=== PATIENT | male | born 1995 | race Caucasian/White ===

== ENCOUNTER 2022-12-28 10:42 | Emergency (ER) | payer MEDICARE ==
[2022-12-28 11:34] VITALS: RESP 18; TEMP 98
[2022-12-28] MEDS ORDERED: KETOROLAC 15 MG/ML 1 ML VIAL IM STA (11:52)
--- NOTE | 2022-12-28 11:53 | ED ---
Back Pain HPI - General Chief Complaint: Back Pain/Injury Stated Complaint: back injury Time Seen by Provider: 12/28/22 11:48 Source: patient, RN notes reviewed Limitations: no limitations - History of Present Illness Initial Comments: Patient is a 27-year-old male presented to ER with chief complaint of back pain. Patient states he was helping lift someone in a wheelchair up a flight of stairs. Patient states he heard a pop in his back while doing this and felt immediate pain. Patient admits to back surgery in his past. Patient is a patient at [facility] currently. Patient denies any radiating pain down his legs or numbness or tingling in his legs. Patient denies any recent fevers, IV drug use, bowel/bladder incontinence. Patient has no other complaints at this time. - Related Data Home Medications Medication Instructions Recorded Confirmed Acetaminophen Tab [Tylenol] 650 mg PO Q4H PRN 12/28/22 12/28/22 Calcium Phos/D3/Magnesium/Zinc 1 tab PO TID PRN 12/28/22 12/28/22 [Jksptpe-Izi-Epos-Vitamin D3] Chlorpheniramine Maleate 4 mg PO Q4H PRN 12/28/22 12/28/22 [Chlor-Trimeton] Hyoscyamine Sulfate [Levsin] 0.125 mg PO QID PRN 12/28/22 12/28/22 Ibuprofen [Motrin Ib] 600 mg PO Q6H PRN 12/28/22 12/28/22 Loperamide HCl [Imodium A-D] 4 mg PO QID PRN 12/28/22 12/28/22 Mag Hydrox/Aluminum Hyd/Simeth 30 ml PO Q4H PRN 12/28/22 12/28/22 [Mylanta Maximum Strength Liq] Multivitamins, Thera [Multivitamin 1 tab PO DAILY 12/28/22 12/28/22 (formulary)] Sulfamethox-Tmp 800-160Mg [Bactrim 1 tab PO Q12HR 12/28/22 12/28/22 DS 800-160 mg] Thiamine [Vitamin B-1] 100 mg PO DAILY 12/28/22 12/28/22 busPIRone HCl [Buspar] 10 mg PO TID 12/28/22 12/28/22 cloNIDine HCL [Catapres] 0.1 - 0.3 mg PO DIRECTED PRN 12/28/22 12/28/22 cloNIDine HCL [Catapres] 0.1 mg PO Q4H PRN 12/28/22 12/28/22 ondansetron HCL [Ondansetron HCl] 8 mg PO Q6H PRN 12/28/22 12/28/22 traZODone HCL [Desyrel] 50 - 150 mg PO HS 12/28/22 12/28/22 Previous Rx's Medication Instructions Recorded Cyclobenzaprine [Flexeril] 5 mg PO TID PRN #15 tablet 12/28/22 Ketorolac [Toradol] 10 mg PO Q6HR #15 tab 12/28/22 Allergies Allergy/AdvReac Type Severity Reaction Status Date / Time No Known Allergies Allergy Verified 12/28/22 13:21 Review of Systems ROS Statement: Those systems with pertinent positive or pertinent negative responses have been documented in the HPI. ROS Other: All systems not noted in ROS Statement are negative. Past Medical History Past Medical History: No Reported History History of Any Multi-Drug Resistant Organisms: None Reported Past Surgical History: Back Surgery Past Psychological History: No Psychological Hx Reported Smoking Status: Current every day smoker Past Alcohol Use History: Abuse, Daily Past Drug Use History: None Reported General Exam Limitations: no limitations General appearance: alert, anxious Back exam: Present: normal inspection, tenderness (Lumbar spine and pelvic girdle) Course Vital Signs 12/28/22 11:28 Temperature 98 F Pulse Rate 82 Respiratory 18 Rate Blood Pressure 133/91 O2 Sat by Pulse 100 Oximetry Medical Decision Making - Medical Decision Making Was pt. sent in by a medical professional or institution (, PA, TEACHING ARTIST, urgent care, hospital, or [facility]...) When possible be specific @ -[facility] Did you speak to anyone other than the patient for history (EMS, parent, family, police, friend...)? What history was obtained from this source @ -No Did you review nursing and triage notes (agree or disagree)? Why? @ -I reviewed and agree with nursing and triage notes Were old charts reviewed (outside hosp., previous admission, EMS record, old EKG, old radiological studies, urgent care reports/EKG's, [facility] records)? Report findings @ -No old charts were reviewed Differential Diagnosis (chest pain, altered mental status, abdominal pain women, abdominal pain men, vaginal bleeding, weakness, fever, dyspnea, syncope, headache, dizziness, GI bleed, back pain, seizure, CVA, palpatations, mental health, musculoskeletal)? @ -Differential Musculoskeletal: Muscular strain, contusion, ligament sprain, fracture, arthritis, septic arthritis, bursitis, cellulitis, muscle spasm, nerve compression, DVT, arterial occlusion, herpes zoster, electrolyte abnormality, tumor.... This is not meant to be in all inclusive list EKG interpreted by me (3pts min.). @ -None X-rays interpreted by me (1pt min.). @ -X-rays of lumbar spine showed no acute fractures or dislocations. There is mild disc degeneration noted. CT interpreted by me (1pt min.). @ -None done U/S interpreted by me (1pt. min.). @ -None done What testing was considered but not performed or refused? (CT, X-rays, U/S, labs)? Why? @ -None What meds were considered but not given or refused? Why? @ -None Did you discuss the management of the patient with other professionals (professionals i.e. , PA, TEACHING ARTIST, lab, RT, psych nurse, social work lecturer, research tech, teacher, parachute officer, shelter case manager)? Give summary @ -No Was smoking cessation discussed for >3mins.? @ -No Was critical care preformed (if so, how long)? @ -No Were there social determinants of health that impacted care today? How? (Homelessness, low income, unemployed, alcoholism, drug addiction, transportation, low edu. Level, literacy, decrease access to med. care, retirement, rehab)? @ -No Was there de-escalation of care discussed even if they declined (Discuss DNR or withdrawal of care, Hospice)? DNR status @ -No What co-morbidities impacted this encounter? (DM, HTN, Smoking, COPD, CAD, Cancer, CVA, ARF, Chemo, Hep., AIDS, mental health diagnosis, sleep apnea, morbid obesity)? @ -None Was patient admitted / discharged? Hospital course, mention meds given and route, prescriptions, significant lab abnormalities, going to OR and other pertinent info. @ -Discharged. Upon examination patient was tender to lumbar spine and pelvic girdle. Patient received IM Toradol for pain control in the ER. X-rays obtained of the lumbar spine showed no acute fractures or dislocations. There is mild disc degeneration noted. Patient will be discharged with a low dose muscle relaxer and ketorolac for symptoms. Patient encouraged to stretch. Return parameters were discussed Patient will be discharged back to [facility] in stable condition with follow-up with PCP. Patient expressed understanding and agreement with care plan. Undiagnosed new problem with uncertain prognosis? @ -No Drug Therapy requiring intensive monitoring for toxicity (Heparin, Nitro, Insulin, Cardizem)? @ -No Were any procedures done? @ -No Diagnosis/symptom? @ -Muscle spasm/strain Acute, or Chronic, or Acute on Chronic? @ -Acute Uncomplicated (without systemic symptoms) or Complicated (systemic symptoms)? @ -Uncomplicated Side effects of treatment? @ -No Exacerbation, Progression, or Severe Exacerbation? @ -No Poses a threat to life or bodily function? How? (Chest pain, [place], [place], pneumonia, PE, COPD, DKA, ARF, appy, cholecystitis, CVA, Diverticulitis, Homicidal, Suicidal, threat to staff... and all critical care pts) @ -No - Radiology Data Radiology results: report reviewed, image reviewed Disposition Clinical Impression: Degeneration of intervertebral disc, Muscle spasm Disposition: HOME SELF-CARE Condition: Stable Instructions (If sedation given, give patient instructions): Acute Low Back Pain (ED) Additional Instructions: Please return to the Emergency Department if symptoms worsen or any other concerns. Prescriptions: Cyclobenzaprine [Flexeril] 5 mg PO TID PRN #15 tablet PRN Reason: Muscle Spasm Ketorolac [Toradol] 10 mg PO Q6HR #15 tab Is patient prescribed a controlled substance at d/c from ED?: No Referrals: None,Stated [Primary Care Provider] - 1-2 days Time of Disposition: 13:31
--- NOTE | 2022-12-28 12:44 | XR ---
EXAMINATION TYPE: XR lumbar spine 2 or 3V DATE OF EXAM: 12/28/2022 12:23 PM CLINICAL INDICATION:Male, 27 years old with history of pain; COMPARISON: None TECHNIQUE: XR lumbar spine 2 or 3V - Frontal, lateral and coned in L5-S1 lateral views of the spine. FINDINGS: No evidence of any acute osseous pathology. No evidence of loss of vertebral body height i s seen. There is normal alignment of the lumbar vertebral bodies. No significant degeneration changes throughout the spine. IMPRESSION: 1. No acute fracture. 2. Minimal multilevel disc degeneration.
[2022-12-28 14:02] VITALS: BP 129/71; PULSE 80
== END 2022-12-28 14:28 | disposition home or self-care (01) ==
LOC: EC 10:42
DX: M51.36 Other intervertebral disc degeneration, lumbar region (principal); M62.838 Other muscle spasm; F17.200 Nicotine dependence, unspecified, uncomplicated
CPT/HCPCS: 72100; 99283; 96372; J1885